=== PATIENT | female | born 2000 | race Caucasian/White ===

== ENCOUNTER 2020-02-29 05:16 | Emergency (ER) | payer BC ==
[~2020-02-29] VITALS: Ht 170.2 cm; Wt 59.1 kg
[2020-02-29 05:22] VITALS: TEMP 97.2
[2020-02-29 05:37] LABS: BASO % 0.3 % (0.0-2.0); GRAN % 77.9 % (42.2-75.2); HEMATOCRIT 42.5 % (35.0-45.0); HEMOGLOBIN 15.4 g/dl (12.0-15.0); LYMPH # 2.5 (1.2-3.4); LYMPH % 17.4 % (20.0-51.0); MEAN CELL VOLUME 94 fl (80.0-95.0); MEAN CORPUSCULAR HEMOGLOBIN 34 pg (26.0-32.0); MEAN CORPUSCULAR HGB CONC 36 g/dl (33.0-37.0); MEAN PLATELET VOLUME 9.5 fl (7.4-10.4); MONO # 0.6 (0.1-0.6); PLATELET COUNT 267 K/mm3 (130-400); RED BLOOD COUNT 4.52 M/mm3 (4.10-5.30); REDCELL DISTRIBUTION WIDTH-CV 12.7 % (11.5-14.5)
[2020-02-29 05:47] LABS: ALBUMIN 5.1 gm/dL (3.5-5.0); BILIRUBIN,TOTAL 0.7 mg/dL (0.0-1.0); CALCIUM 9.6 mg/dL (8.4-10.2); CREATININE, serum 0.78 (0.52-1.25); MAGNESIUM 1.7 mg/dL (1.6-2.3); POTASSIUM 3.5 mmol/L (3.4-5.0); TOTAL PROTEIN 8.4 gm/dL (6.4-8.2)
[2020-02-29] MEDS ORDERED: PHENERGAN 25 TA25 MG PO (10:11)
[2020-02-29 10:23] VITALS: BP 126/80; PULSE 54
== END 2020-02-29 10:23 | disposition home or self-care (01) ==
LOC: COL.ER 05:16
PROVIDERS: Emergency Medicine
DX: K29.20 Alcoholic gastritis without bleeding (principal); Z32.02 Encounter for pregnancy test, result negative
CPT/HCPCS: C9113; J0780; J2405; J2550; J7030